=== PATIENT | female | born 1995 | race Caucasian/White ===

== ENCOUNTER 2017-12-05 15:15 | Emergency (ER) | payer SELFPAY ==
[~2017-12-05 15:15] MED LIST: ACET-1966 PO; AMOX875T60 PO; EPIN0.3P15 IM; FAMO20TA28 PO; HYDR-4225 PO; HYDR-4309 PO; PRED-1 PO; PRED20TA6 PO; PROM-110 PO
[2017-12-05] MEDS ORDERED: diphenhydrAMINE 25 MG CAP PO ONE (15:25)
--- NOTE | 2017-12-05 15:29 | ER Report ---
History and Physical Time Seen By MD: 15:19 Hx. 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 SHE HAS A SMALL RED RAISED AREA ON THE BACK OF HER LEFT ARM HPI/ROS CHIEF COMPLAINT: Bee sting HISTORY OF PRESENT ILLNESS: Since the ED with complaint of a bee sting that occurred about 20 minutes ago. She was stung in the left upper arm. She states that she is having some mild pain and itching. Her mother advised her to come in to the ER immediately for this. She states that she has had no anaphylactic reactions to bee stings in the past. She states that she is breathing well and has no tongue or lip swelling. REVIEW OF SYSTEMS: Respiratory: No cough, no dyspnea. Cardiovascular: No chest pain, no palpitations. Gastrointestinal: No vomiting, no abdominal pain. Musculoskeletal: No back pain. Allergies: Coded Allergies: No Known Drug Allergies (Verified , 03/22/15) Home Meds Discontinued Scripts Epinephrine (EPIPEN 2-JACLYN) 0.3 Mg/0.3 Ml Pen.injctr, 0.3 MG IM PRN for severe allergic reaction, #1 Prov:SHOAIB MARISCAL MD 03/22/15 Prednisone 10 Mg Tab (PREDNISONE 10 MG TAB) 10 Mg Tablet, 10 MG PO DIRECTED, #30 TAB 6 tabs daily for 2 days 4 tabs daily for 2 days 2 tabs daily for 2 days 1 tab daily for 10 days Prov:SHOAIB MARISCAL MD 03/22/15 Hydroxyzine Hcl (HYDROXYZINE HCL) 25 Mg Tablet, 25 MG PO 3-4XD for allergic reaction, #60 TAB Prov:SHOAIB MARISCAL MD 03/22/15 Reviewed Nurses Notes: Yes Old Medical Records Reviewed: Yes Hx Smoking: Yes Smoking Status: Current: Every Day Smoker Exposure to Second Hand Smoke?: Yes Hx Substance Use Disorder: No Hx Alcohol Use: No Constitutional Vital Sign - Last 24 Hours 12/05/17 15:16 Temp 97.5 Pulse 90 Resp 20 B/P (MAP) 111/60 Pulse Ox 96 O2 Delivery Room Air Physical Exam General Appearance: The patient is alert, has no immediate need for airway protection and no signs of toxicity. Patient appears to be in no acute distress. ENT, Mouth: Mucous membranes are moist. Respiratory: There are no retractions, lungs are clear to auscultation. Cardiovascular: Regular rate and rhythm. Skin: There is slight swelling and erythema surrounding a small puncture area over the left posterior upper arm. Musculoskeletal: Neck is supple non tender. Extremities are nontender, nonswollen and have full range of motion. Medical Decision Making ED Course/Re-evaluation ED Course Discussed with patient that it appears that she has a localized allergic reaction to bee sting. She may take Benadryl or other antihistamines for this. Will give her 50 mg by mouth Benadryl now. Decision to Disposition Date: Dec 05, 2017 Decision to Disposition Time: 15:27 Depart Departure Latest Vital Signs Vital Signs Date Time Temp Pulse Resp B/P (MAP) Pulse Ox O2 Delivery O2 Flow Rate FiO2 12/05/17 15:16 97.5 90 20 111/60 96 Room Air Impression: Primary Impression: Allergic reaction to bee sting Condition: Improved Disposition: HOME OR SELF-CARE Patient Instructions: Insect Bite or Sting (ED) Additional Instructions: Rest, ice, elevate. May take [id number] antihistamines as needed. Follow- up with primary care provider in 2-3 days. If having any worsening or concerning symptoms return the emergency Department. CONCEPCION PASCAL PA-C Dec 05, 2017 15:29
[2017-12-05 15:32] VITALS: BP 109/70
== END 2017-12-05 15:32 | disposition home or self-care (01) ==
LOC: ER 15:25
DX: T63.441A Toxic effect of venom of bees, accidental (unintentional), initial encounter (principal)
CPT/HCPCS: 99283; Q0163

== ENCOUNTER 2018-01-29 17:25 | Emergency (ER) | payer SELFPAY ==
--- NOTE | 2018-01-29 17:37 | ER Report ---
History and Physical Time Seen By MD: 17:37 Hx. of Stated Complaint: INTERMITTENT VAGINAL BLEEDING SINCE SEPT AND BILATERAL LOWER ABD PAIN, BLEEDING FOLLOWING INTERCOURSE, NO DYSPAREUNIA. HPI/ROS CHIEF COMPLAINT: Lower abdominal pain, vaginal bleeding HISTORY OF PRESENT ILLNESS: 22-year-old female patient presents to emergency room with complaint of lower abdominal pain, vaginal bleeding. Patient states she had her menses at the end of last month. She states that she then had bleeding which was out of the ordinary starting on the third through the fifth. She states that she had intercourse yesterday with her boyfriend. She states there is no pain with intercourse. She states that afterwards she did have significant amounts of nausea. She also stated that she had increasing pain. She states pain is worse with laying down in certain positions while sitting down. She is also noted some intermittent bleeding throughout today. She states that the bleeding started after intercourse. She denies having any fevers, however she has had some chills. She has not taken any medication for this. REVIEW OF SYSTEMS: Respiratory: No cough, no dyspnea. Cardiovascular: No chest pain, no palpitations. Gastrointestinal: As noted above. Musculoskeletal: No back pain. Allergies: Coded Allergies: peanut (Verified Allergy, Severe, ANAPHYLAXIS, 01/29/18) Home Meds Active Scripts Doxycycline Hyclate (DOXYCYCLINE HYCLATE) 100 Mg Tablet, 100 MG PO BID, #28 TAB Prov:LORELEI MONTEJO [facility] 01/29/18 Metronidazole (FLAGYL) 500 Mg Tablet, 500 MG PO BID, #28 TAB Prov:LORELEI MONTEJO [facility] 01/29/18 Past Medical/Surgical History Patient has a past medical history of miscarriage, depression, anxiety. Patient has a surgical history of wisdom teeth removal. Reviewed Nurses Notes: Yes Hx Smoking: Yes Smoking Status: Current: Every Day Smoker Exposure to Second Hand Smoke?: Yes Hx Substance Use Disorder: No Hx Alcohol Use: No Constitutional Vital Sign - Last 24 Hours 01/29/18 01/29/18 01/29/18 01/29/18 17:31 17:33 17:40 18:08 Temp 98.9 Pulse 95 87 Resp 16 B/P (MAP) 139/95 (110) 139/95 128/86 (100) Pulse Ox 95 95 O2 Delivery Room Air 01/29/18 01/29/18 01/29/18 18:10 18:30 18:45 Pulse 76 76 69 83 83 B/P (MAP) 120/86 (97) 114/97 (103) 122/87 (99) Pulse Ox 97 96 Physical Exam General Appearance: The patient is alert, has no immediate need for airway protection and no current signs of toxicity. Respiratory: Chest is non tender, lungs are clear to auscultation. Cardiac: regular rate and rhythm Gastrointestinal: Abdomen is soft and tender throughout the abdomen, however seems to be worse in the suprapubic region, no masses, bowel sounds normal. Musculoskeletal: Neck: Neck is supple and non tender. Extremities have full range of motion and are non tender. Skin: No rashes or lesions. DIFFERENTIAL DIAGNOSIS: After history and physical exam differential diagnosis was considered for abdominal pain including but not limited to appendicitis, cholecystitis, gastritis and urinary tract infection. Medical Decision Making Data Points Result Diagram: 01/29/18 17501/29/18 175 Laboratory Hematology Test 01/29/18 17:30 01/29/18 17:50 Urine Color Yellow Urine Clarity Clear Urine pH 6.0 pH (4.8-9.5) Urine Specific [place] 1.013 Urine Protein Negative mg/dL (NEGATIVE) Urine Glucose (UA) Negative mg/dL (NEGATIVE) Urine Ketones Negative mg/dL (NEGATIVE) Urine Blood Negative (NEGATIVE) Urine Nitrite Negative (NEGATIVE) Urine Bilirubin Negative (NEGATIVE) Urine Urobilinogen Negative mg/dL (0.2-1.9) Urine Leukocyte Esterase Negative (NEGATIVE) Urine RBC 1 /HPF (0-2/HPF) Urine WBC 1 /HPF (0-5/HPF) Urine Squamous Epithelial Cells Many /LPF (</=FEW) Urine Bacteria Negative /HPF (NONE-FEW) Urine Mucus None /HPF (NONE-FEW) Red Blood Count 5.20 M/uL (4.17-5.56) Mean Corpuscular Volume 87.6 fL (80.0-96.0) Mean Corpuscular Hemoglobin 30.1 pg (26.0-33.0) Mean Corpuscular Hemoglobin Concent 34.3 g/dL (32.0-36.0) Red Cell Distribution Width 13.4 % (11.5-14.5) Mean Platelet Volume 7.6 fL (7.2-11.1) Neutrophils (%) (Auto) 57.2 % (39.4-72.5) Lymphocytes (%) (Auto) 33.3 % (17.6-49.6) Monocytes (%) (Auto) 7.7 % (4.1-12.4) Eosinophils (%) (Auto) 1.1 % (0.4-6.7) Basophils (%) (Auto) 0.7 % (0.3-1.4) Nucleated RBC Relative Count (auto) 0.1 /100WBC Neutrophils # (Auto) 6.4 K/uL (2.0-7.4) Lymphocytes # (Auto) 3.7 K/uL (1.3-3.6) Monocytes # (Auto) 0.9 K/uL (0.3-1.0) Eosinophils # (Auto) 0.1 K/uL (0.0-0.5) Basophils # (Auto) 0.1 K/uL (0.0-0.1) Nucleated RBC Absolute Count (auto) 0.01 K/uL Prothrombin Time 12.6 seconds (12.0-14.4) Prothromb Time International Ratio 0.95 Activated Partial Thromboplast Time 29 seconds (23-35) Sodium Level 141 mmol/L (137-145) Potassium Level 3.7 mmol/L (3.5-5.0) Chloride Level 106 mmol/L (98-107) Carbon Dioxide Level 24 mmol/L (22-31) Blood Urea Nitrogen 9 mg/dl (7-18) Creatinine 0.60 mg/dl (0.52-1.04) Glomerular Filtration Rate Calc > 60.0 Random Glucose 94 mg/dl (75-110) Calcium Level 8.7 mg/dl (8.4-10.2) Total Bilirubin 0.4 mg/dl (0.2-1.3) Aspartate Amino Transf (AST/SGOT) 27 U/L (0-35) Alanine Aminotransferase (ALT/SGPT) 43 U/L (0-56) Alkaline Phosphatase 75 U/L (0-126) Total Protein 7.1 g/dl (6.3-8.2) Albumin 3.9 g/dl (3.5-5.0) Human Chorionic Gonadotropin, Qual Negative (NEGATIVE) Chemistry Test 01/29/18 17:30 01/29/18 17:50 Urine Color Yellow Urine Clarity Clear Urine pH 6.0 pH (4.8-9.5) Urine Specific [place] 1.013 Urine Protein Negative mg/dL (NEGATIVE) Urine Glucose (UA) Negative mg/dL (NEGATIVE) Urine Ketones Negative mg/dL (NEGATIVE) Urine Blood Negative (NEGATIVE) Urine Nitrite Negative (NEGATIVE) Urine Bilirubin Negative (NEGATIVE) Urine Urobilinogen Negative mg/dL (0.2-1.9) Urine Leukocyte Esterase Negative (NEGATIVE) Urine RBC 1 /HPF (0-2/HPF) Urine WBC 1 /HPF (0-5/HPF) Urine Squamous Epithelial Cells Many /LPF (</=FEW) Urine Bacteria Negative /HPF (NONE-FEW) Urine Mucus None /HPF (NONE-FEW) White Blood Count 11.1 k/uL (4.5-11.0) Red Blood Count 5.20 M/uL (4.17-5.56) Hemoglobin 15.7 g/dL (12.0-16.0) Hematocrit 45.6 % (34.0-47.0) Mean Corpuscular Volume 87.6 fL (80.0-96.0) Mean Corpuscular Hemoglobin 30.1 pg (26.0-33.0) Mean Corpuscular Hemoglobin Concent 34.3 g/dL (32.0-36.0) Red Cell Distribution Width 13.4 % (11.5-14.5) Platelet Count 332 K/uL (150-450) Mean Platelet Volume 7.6 fL (7.2-11.1) Neutrophils (%) (Auto) 57.2 % (39.4-72.5) Lymphocytes (%) (Auto) 33.3 % (17.6-49.6) Monocytes (%) (Auto) 7.7 % (4.1-12.4) Eosinophils (%) (Auto) 1.1 % (0.4-6.7) Basophils (%) (Auto) 0.7 % (0.3-1.4) Nucleated RBC Relative Count (auto) 0.1 /100WBC Neutrophils # (Auto) 6.4 K/uL (2.0-7.4) Lymphocytes # (Auto) 3.7 K/uL (1.3-3.6) Monocytes # (Auto) 0.9 K/uL (0.3-1.0) Eosinophils # (Auto) 0.1 K/uL (0.0-0.5) Basophils # (Auto) 0.1 K/uL (0.0-0.1) Nucleated RBC Absolute Count (auto) 0.01 K/uL Prothrombin Time 12.6 seconds (12.0-14.4) Prothromb Time International Ratio 0.95 Activated Partial Thromboplast Time 29 seconds (23-35) Glomerular Filtration Rate Calc > 60.0 Calcium Level 8.7 mg/dl (8.4-10.2) Total Bilirubin 0.4 mg/dl (0.2-1.3) Aspartate Amino Transf (AST/SGOT) 27 U/L (0-35) Alanine Aminotransferase (ALT/SGPT) 43 U/L (0-56) Alkaline Phosphatase 75 U/L (0-126) Total Protein 7.1 g/dl (6.3-8.2) Albumin 3.9 g/dl (3.5-5.0) Human Chorionic Gonadotropin, Qual Negative (NEGATIVE) Coagulation Test 01/29/18 17:50 Prothrombin Time 12.6 seconds Prothromb Time International Ratio 0.95 Activated Partial Thromboplast Time 29 seconds Urinalysis Test 01/29/18 17:30 Urine Color Yellow Urine Clarity Clear Urine pH 6.0 pH (4.8-9.5) Urine Specific [place] 1.013 Urine Protein Negative mg/dL (NEGATIVE) Urine Glucose (UA) Negative mg/dL (NEGATIVE) Urine Ketones Negative mg/dL (NEGATIVE) Urine Blood Negative (NEGATIVE) Urine Nitrite Negative (NEGATIVE) Urine Bilirubin Negative (NEGATIVE) Urine Urobilinogen Negative mg/dL (0.2-1.9) Urine Leukocyte Esterase Negative (NEGATIVE) Urine RBC 1 /HPF (0-2/HPF) Urine WBC 1 /HPF (0-5/HPF) Urine Squamous Epithelial Cells Many /LPF (</=FEW) Urine Bacteria Negative /HPF (NONE-FEW) Urine Mucus None /HPF (NONE-FEW) Microbiology Microbiology Date/Time Source Procedure Growth Status 01/29/18 18:10 Cervical Wet Prep - Final Complete ED Course/Re-evaluation ED Course Patient was admitted to an exam room, history and physical were obtained. Differential diagnoses were considered. On examination lungs are clear, heart is regular, abdomen is soft and tender in the suprapubic region. A CBC, CMP, hCG, urinalysis were obtained. Lab results were negative. I considered doing a CT scan but with white count being 11,100 with no left shift I felt that would be too much radiation without any real benefit. A pelvic exam was done as described below. Patient did have some cervical motion tenderness. A chlamydia and gonorrhea screen was obtained as well as a wet prep. Wet prep was positive for Trichomonas, clue cells, many white blood cells and some epithelial cells. Discussed findings with patient. We will go ahead and treat her with Dr. Saxena and Laly for PID which will cover both the bacterial vaginosis as well as trichomonas. We'll also give the patient a prescription for her boyfriend, 2 g of Flagyl 1. I would like the patient follow-up with her face cleaner. Patient is to avoid sexual intercourse for 2 weeks. I discussed this with the patient who verbalized understanding and agreement with plan. Pelvic exam: The vulva was normal no lesions. The vagina did not have significant discharge. The cervix was closed no bleeding and no purulent drainage. The uterus was normal size and tender. The adnexa had no masses and no tenderness. The exam was performed with a metal off bearer. Decision to Disposition Date: Jan 29, 2018 Decision to Disposition Time: 18:56 Depart Departure Latest Vital Signs Vital Signs Date Time Temp Pulse Resp B/P (MAP) Pulse Ox O2 Delivery O2 Flow Rate FiO2 01/29/18 18:45 69 96 01/29/18 18:30 120/86 (97) 114/97 (103) 122/87 (99) 01/29/18 17:33 98.9 16 Room Air Impression: Primary Impression: Pelvic inflammatory disease Additional Impressions: infection, trichomonal Bacterial vaginosis Condition: Improved Disposition: HOME OR SELF-CARE New Scripts Doxycycline Hyclate (DOXYCYCLINE HYCLATE) 100 Mg Tablet 100 MG PO BID, #28 TAB Prov: LORELEI MONTEJO 01/29/18 Metronidazole (FLAGYL) 500 Mg Tablet 500 MG PO BID, #28 TAB Prov: LORELEI MONTEJO 01/29/18 Patient Instructions: Pelvic Inflammatory Disease (ED) Additional Instructions: Increase fluid intake. Get plenty of rest. No sexual intercourse for the next 2 weeks. Take your antibiotics as directed. Follow up with your face cleaner in the next week. Return to the ER if condition worsens. Problem Qualifiers LORELEI MONTEJO Jan 29, 2018 17:37
[2018-01-29] MEDS ORDERED: NS(*) 0.9% 1000 ML BAG 1,000 ML IV ONE (17:46)
[2018-01-29 17:56] LABS: PLATELET COUNT, AUTOMATED 332 K/uL (150-450)
[2018-01-29 18:09] LABS: INR 0.95
[2018-01-29 18:30] VITALS: BP 122/87
[2018-01-29] MEDS ORDERED: METR-1 PO (18:52)
[2018-01-29] MEDS ORDERED: DOXY-179 PO (18:52)
== END 2018-01-29 19:10 | disposition home or self-care (01) ==
LOC: ER 17:33
DX: R11.0 Nausea (principal); N73.9 Female pelvic inflammatory disease, unspecified; N76.0 Acute vaginitis; A59.01 Trichomonal vulvovaginitis
CPT/HCPCS: 81001; 84703; 85025; 85610; 85730; 87210; 87491; 87591; 96360; 99283; J7030; 82040; 82247; 82310; 82374; 82435; 82565; 82947; 84075; 84132; 84155; 84295; 84450; 84460; 84520

== ENCOUNTER 2018-03-13 16:23 | Emergency (ER) | payer SELFPAY ==
[~2018-03-13 16:23] MED LIST changes: +DOXY-179 PO; -HYDR-4309 PO; +HYDR-653 PO; +METR-1 PO
--- NOTE | 2018-03-13 16:30 | ER Report ---
History and Physical Time Seen By MD: 16:31 HPI/ROS CHIEF COMPLAINT: Labial pain and swelling HISTORY OF PRESENT ILLNESS: This is a 22-year-old female who presents to the emergency department for concerns of an abscess or cyst in her genital area. Patient states she developed some pain and irritation in the left labial area la st night, increased in intensity and pain throughout today, patient states it's very uncomfortable now and makes ambulating and positional changes difficult and uncomfortable. No fevers or chills. No nausea vomiting. No other complaints. REVIEW OF SYSTEMS: Respiratory: No cough, no dyspnea. Cardiovascular: No chest pain, no palpitations. Gastrointestinal: No vomiting, no abdominal pain. Musculoskeletal: No back pain. Integumentary: As above. Allergies: Coded Allergies: peanut (Verified Allergy, Severe, ANAPHYLAXIS, 01/29/18) Home Meds Active Scripts Hydrocodone Bit/Acetaminophen (NORCO 5-325 TABLET) 1 Each Tablet, 1 EACH PO Q4- 6H PRN for PAIN, #6 TAB 0 Refills Prov:ZAN AMAYA [facility]- 03/13/18 Cephalexin 500 Mg Tab (KEFLEX 500 MG TAB) 500 Mg Tablet, 500 MG PO Q6H, #28 TAB 0 Refills Prov:ZAN AMAYA [facility]- 03/13/18 Discontinued Scripts Doxycycline Hyclate (DOXYCYCLINE HYCLATE) 100 Mg Tablet, 100 MG PO BID, #28 TAB Prov:LORELEI MONTEJO [facility] 01/29/18 Metronidazole (FLAGYL) 500 Mg Tablet, 500 MG PO BID, #28 TAB Prov:LORELEI MONTEJO [facility] 01/29/18 Past Medical/Surgical History The patient has a: Howie history of wisdom tooth extraction, miscarriage, smokes, depression, anxiety. Reviewed Nurses Notes: Yes Hx Smoking: Yes Smoking Status: Current: Every Day Smoker Exposure to Second Hand Smoke?: Yes Hx Substance Use Disorder: No Hx Alcohol Use: No Constitutional Vital Sign - Last 24 Hours 03/13/18 16:31 Temp 98.1 Pulse 101 Resp 16 B/P (MAP) 126/91 Pulse Ox 95 O2 Delivery Room Air Physical Exam General Appearance: The patient is alert, has no immediate need for airway protection and no current signs of toxicity. Eyes: Pupils equal and round no injection. Respiratory: Chest is non tender, lungs are clear to auscultation. Cardiac: regular rate and rhythm. Gastrointestinal: Abdomen is soft and non tender, no masses, bowel sounds normal. Musculoskeletal: Neck: Neck is supple and non tender. Extremities have full range of motion and are non tender. Skin: there is an area of erythema and cellulitis to the left labia majora. No sign of Bartholin's abscess. The area is warm to touch and painful with light palpation. DIFFERENTIAL DIAGNOSIS: After history and physical exam differential diagnosis was considered for Bartholin's abscess, cellulitis, folliculitis. Medical Decision Making ED Course/Re-evaluation ED Course The patient was admitted to a room. A history and physical were obtained. Differential diagnoses were considered. With a winding operator, a close inspection of the labia did not reveal a bartholin's abscess, it is cellulitic. As the patient to groom her genitalia with a razor, it is possible this is from razor burn or f olliculitis. The area was covered with topical lidocaine with significant relief of pain. I did start her on Keflex. She was instructed to monitor of worsening symptoms. She will also apply a thin layer of lidocaine to the area for pain control, Lortab was prescribed for severe pain. The patient had no other questions or concerns and was discharged home. Decision to Disposition Date: Mar 13, 2018 Decision to Disposition Time: 17:10 Depart Departure Latest Vital Signs Vital Signs Date Time Temp Pulse Resp B/P (MAP) Pulse Ox O2 Delivery O2 Flow Rate FiO2 03/13/18 16:31 98.1 101 16 126/91 95 Room Air Impression: Primary Impression: Cellulitis of labia majora Condition: Improved Disposition: HOME OR SELF-CARE New Scripts Hydrocodone Bit/Acetaminophen (NORCO 5-325 TABLET) 1 Each Tablet 1 EACH PO Q4-6H PRN for PAIN, #6 TAB 0 Refills Prov: ZAN AMAYA [facility] 03/13/18 Cephalexin 500 Mg Tab (KEFLEX 500 MG TAB) 500 Mg Tablet 500 MG PO Q6H, #28 TAB 0 Refills Prov: ZAN AMAYA [employer] 03/13/18 Patient Instructions: Cellulitis (ED) Additional Instructions: There is no sign of an abscess at this time, You do however had skin infection called cellulitis. As we discussed, take the antibiotics as prescribed. Take Ibuprofen or Tylenol as needed for pain. Take Hydrocodone for severe pain, it is sedating, can cause constipation, increase your water and daily fiber. Use the lidocaine, topically and only externally to the painful areas. Try a sitz bath, 2-3 times a day for the next several days. Be sure to keep the affected area clean and dry. Return to the ED for any other concerns or worsening symptoms. ZAN AMAYA [employer] Mar 13, 2018 16:30
[2018-03-13 16:31] VITALS: BP 126/91
[2018-03-13] MEDS ORDERED: LIDOCAINE 2% VISC SLN 15ML UDC PO ONE (16:50)
[2018-03-13] MEDS ORDERED: CEPH500T7 PO (17:11)
[2018-03-13] MEDS ORDERED: HYDR-653 PO (17:11)
[2018-03-14] MEDS ORDERED: CLIN300C99 PO (15:11)
[2018-03-14] MEDS ORDERED: SULF-198 PO (15:11)
[2018-03-14] MEDS ORDERED: OXYC-865 PO (15:20)
== END 2018-03-13 17:25 | disposition home or self-care (01) ==
LOC: ER 16:35
DX: N76.2 Acute vulvitis (principal)
CPT/HCPCS: 99283

== ENCOUNTER 2018-03-14 11:25 | Emergency (ER) | payer SELFPAY ==
[~2018-03-14 11:25] MED LIST changes: +CEPH500T7 PO
--- NOTE | 2018-03-14 11:35 | ER Report ---
History and Physical Time Seen By MD: 11:35 HPI/ROS CHIEF COMPLAINT: Labial swelling and pain HISTORY OF PRESENT ILLNESS: 22-year-old female patient presents to emergency room with complaint of labial swelling and pain. She states that she was seen here yesterday, was diagnosed with cellulitis. Patient states the pain is significantly worse today than it had been. Patient states she was started on Keflex and has pain medication. Since the patient has seemed to help. She states she's been nauseated today, she denies any vomiting or diarrhea. She states that she came back because the pain was so significant. REVIEW OF SYSTEMS: Respiratory: No cough, no dyspnea. Cardiovascular: No chest pain, no palpitations. Gastrointestinal: No vomiting, no abdominal pain. Musculoskeletal: No back pain. Allergies: Coded Allergies: peanut (Verified Allergy, Severe, ANAPHYLAXIS, 01/29/18) Home Meds Active Scripts Clindamycin Hcl (CLINDAMYCIN HCL) 300 Mg Capsule, 300 MG PO Q6H, #50 CAPSULE Prov:LORELEI MONTEJO [facility] 03/14/18 Sulfamethoxazole/Trimet 800-160 Mg Tab (BACTRIM DS TABLET) 1 Each Tablet, 1 TAB PO Q12H, #26 TAB Prov:LORELEI MONTEJO [facility] 03/14/18 Hydrocodone Bit/Acetaminophen (NORCO 5-325 TABLET) 1 Each Tablet, 1 EACH PO Q4- 6H PRN for PAIN, #6 TAB 0 Refills Prov:ZAN AMAYA [facility] 03/13/18 Cephalexin 500 Mg Tab (KEFLEX 500 MG TAB) 500 Mg Tablet, 500 MG PO Q6H, #28 TAB 0 Refills Prov:ZAN AMAYA [facility] 03/13/18 Discontinued Scripts Doxycycline Hyclate (DOXYCYCLINE HYCLATE) 100 Mg Tablet, 100 MG PO BID, #28 TAB Prov:LORELEI MONTEJO [facility] 01/29/18 Metronidazole (FLAGYL) 500 Mg Tablet, 500 MG PO BID, #28 TAB Prov:LORELEI MONTEJO [facility] 01/29/18 Past Medical/Surgical History Patient has a past medical history of depression, anxiety, miscarriage. Patient has a surgical history wisdom teeth removal. Reviewed Nurses Notes: Yes Hx Smoking: Yes Smoking Status: Current: Every Day Smoker Exposure to Second Hand Smoke?: Yes Hx Substance Use Disorder: No Hx Alcohol Use: No Constitutional Vital Sign - Last 24 Hours 03/14/18 03/14/18 03/14/18 03/14/18 11:30 11:33 11:35 11:45 Temp 98.0 Pulse ??? 112 Resp 18 B/P (MAP) 130/89 130/89 (103) 114/80 (91) Pulse Ox 92 03/14/18 03/14/18 03/14/18 03/14/18 12:00 12:15 12:30 12:45 Pulse 96 95 B/P (MAP) 130/101 (111) 126/83 (97) 145/69 (94) Pulse Ox 90 91 03/14/18 03/14/18 03/14/18 03/14/18 13:00 13:30 14:00 14:30 Pulse 90 90 94 84 B/P (MAP) 104/64 (77) Pulse Ox 96 94 95 95 Physical Exam General Appearance: The patient is alert, has no immediate need for airway protection and no current signs of toxicity. Respiratory: Chest is non tender, lungs are clear to auscultation. Cardiac: regular rate and rhythm Gastrointestinal: Abdomen is soft and non tender, no masses, bowel sounds normal. Musculoskeletal: Neck: Neck is supple and non tender. Extremities have full range of motion and are non tender. Skin: No rashes or lesions. Patient does have swelling, erythema noted to the left labia. It is very tender to palpation. Examination of the labia was done with a traffic circuit engineer. DIFFERENTIAL DIAGNOSIS: After history and physical exam differential diagnosis was considered for dental abscess, cellulitis. Medical Decision Making Data Points Result Diagram: 03/14/18 1153 03/14/18 1153 Laboratory Hematology Test 03/14/18 11:53 Red Blood Count 4.97 M/uL (4.17-5.56) Mean Corpuscular Volume 89.0 fL (80.0-96.0) Mean Corpuscular Hemoglobin 30.4 pg (26.0-33.0) Mean Corpuscular Hemoglobin Concent 34.2 g/dL (32.0-36.0) Red Cell Distribution Width 13.0 % (11.5-14.5) Mean Platelet Volume 7.2 fL (7.2-11.1) Neutrophils (%) (Auto) 72.9 % (39.4-72.5) Lymphocytes (%) (Auto) 17.4 % (17.6-49.6) Monocytes (%) (Auto) 8.7 % (4.1-12.4) Eosinophils (%) (Auto) 0.6 % (0.4-6.7) Basophils (%) (Auto) 0.4 % (0.3-1.4) Nucleated RBC Relative Count (auto) 0.1 /100WBC Neutrophils # (Auto) 12.8 K/uL (2.0-7.4) Lymphocytes # (Auto) 3.1 K/uL (1.3-3.6) Monocytes # (Auto) 1.5 K/uL (0.3-1.0) Eosinophils # (Auto) 0.1 K/uL (0.0-0.5) Basophils # (Auto) 0.1 K/uL (0.0-0.1) Nucleated RBC Absolute Count (auto) 0.02 K/uL Peripheral Blood Smear No Y/N Sodium Level 137 mmol/L (137-145) Potassium Level 3.6 mmol/L (3.5-5.0) Chloride Level 106 mmol/L (98-107) Carbon Dioxide Level 21 mmol/L (22-31) Blood Urea Nitrogen 8 mg/dl (7-18) Creatinine 0.60 mg/dl (0.52-1.04) Glomerular Filtration Rate Calc > 60.0 Random Glucose 103 mg/dl (75-110) Calcium Level 9.0 mg/dl (8.4-10.2) Total Bilirubin 0.6 mg/dl (0.2-1.3) Aspartate Amino Transf (AST/SGOT) 44 U/L (0-35) Alanine Aminotransferase (ALT/SGPT) 73 U/L (0-56) Alkaline Phosphatase 87 U/L (0-126) Total Protein 7.6 g/dl (6.3-8.2) Albumin 4.0 g/dl (3.5-5.0) Human Chorionic Gonadotropin, Qual Negative (NEGATIVE) Chemistry Test 03/14/18 11:53 White Blood Count 17.6 k/uL (4.5-11.0) Red Blood Count 4.97 M/uL (4.17-5.56) Hemoglobin 15.1 g/dL (12.0-16.0) Hematocrit 44.2 % (34.0-47.0) Mean Corpuscular Volume 89.0 fL (80.0-96.0) Mean Corpuscular Hemoglobin 30.4 pg (26.0-33.0) Mean Corpuscular Hemoglobin Concent 34.2 g/dL (32.0-36.0) Red Cell Distribution Width 13.0 % (11.5-14.5) Platelet Count 335 K/uL (150-450) Mean Platelet Volume 7.2 fL (7.2-11.1) Neutrophils (%) (Auto) 72.9 % (39.4-72.5) Lymphocytes (%) (Auto) 17.4 % (17.6-49.6) Monocytes (%) (Auto) 8.7 % (4.1-12.4) Eosinophils (%) (Auto) 0.6 % (0.4-6.7) Basophils (%) (Auto) 0.4 % (0.3-1.4) Nucleated RBC Relative Count (auto) 0.1 /100WBC Neutrophils # (Auto) 12.8 K/uL (2.0-7.4) Lymphocytes # (Auto) 3.1 K/uL (1.3-3.6) Monocytes # (Auto) 1.5 K/uL (0.3-1.0) Eosinophils # (Auto) 0.1 K/uL (0.0-0.5) Basophils # (Auto) 0.1 K/uL (0.0-0.1) Nucleated RBC Absolute Count (auto) 0.02 K/uL Peripheral Blood Smear No Y/N Glomerular Filtration Rate Calc > 60.0 Calcium Level 9.0 mg/dl (8.4-10.2) Total Bilirubin 0.6 mg/dl (0.2-1.3) Aspartate Amino Transf (AST/SGOT) 44 U/L (0-35) Alanine Aminotransferase (ALT/SGPT) 73 U/L (0-56) Alkaline Phosphatase 87 U/L (0-126) Total Protein 7.6 g/dl (6.3-8.2) Albumin 4.0 g/dl (3.5-5.0) Human Chorionic Gonadotropin, Qual Negative (NEGATIVE) EKG/Imaging Imaging EXAMINATION: CT Pelvis W/Contrast HISTORY: Labial swelling, redness TECHNIQUE: Spiral scan was obtained through the pelvis during injection of nonionic iodinated intravenous contrast. One of the following dose optimization techniques was utilized in the performance of this exam: Automated exposure control; adjustment of the mA and/or kV according to the patient's size; or use of an iterative reconstruction technique. Specific details can be referenced in the facility's radiology CT exam operational policy. Contrast: 75 mL of IV Isovue-370. COMPARISON STUDIES: None. FINDINGS: Pelvic structures: Bladder is unremarkable. Uterus and adnexal structures are normal. There is a rim-enhancing fluid collection along the left posterolateral aspect of the vaginal introitus measuring approximately 3.9 x 1.9 x 2 cm. With a classic location for a Bartholin's cyst. While these can have some rim enhancement, these can become secondarily infected and form an abscess. There are some mild adjacent inflammatory changes which would be concerning for infection. Bowel / peritoneum / mesenteries: Visualized bowel is unremarkable. Appendix is identified and is normal. There is no free fluid or free air in the pelvis. Vessels: Negative Musculoskeletal / Body wall: Negative Lymph node assessment: There are enlarged left inguinal nodes, the largest measuring approximately 2 cm in short axis. There are adjacent inflammatory changes. No significant right inguinal adenopathy. IMPRESSION: 1. Findings consistent with a left Bartholin's cyst. Adjacent inflammatory changes and rim enhancement are consistent with secondary infection. This would correlate with the patient's symptoms. 2. Enlarged left inguinal nodes, most likely reactive. Close clinical follow-up and/or imaging follow-up if necessary is recommended. Report Dictated By: Latosha Emerson MD at 03/14/2018 12:49 PM Report E-Signed By: Latosha Emerson MD at 03/14/2018 1:07 PM ED Course/Re-evaluation ED Course Patient is admitted and examined, history and physical were obtained. On examination lungs are clear, heart is regular, abdomen soft nontender. Patient does have significant amounts of tenderness to the left labia. It is swollen and erythematous. With the patient being seen so recently I did do a CT scan of the pelvis, partially due to the pain and also because I do not think she'll be able to tolerate an ultrasound. Results showed a Bartholin's cyst. I discussed the case with Dr. Preciado, on cytotechnologist/histotechnologist. He did come and evaluate the patient and opened and drained the abscess. Patient will then be placed on antibiotics, Bactrim and clindamycin. She is follow-up with Dr. Preciado in his office in 3 weeks. Patient will be on antibiotics for the next 2 weeks. I discussed this with the patient and her mother they verbalized understanding and agreement. Due to the amount of pain we will go ahead and change her pain medication to oxycodone/acetaminophen. Decision to Disposition Date: Mar 14, 2018 Decision to Disposition Time: 15:13 Depart Departure Latest Vital Signs Vital Signs Date Time Temp Pulse Resp B/P (MAP) Pulse Ox O2 Delivery O2 Flow Rate FiO2 03/14/18 14:30 84 95 03/14/18 13:00 104/64 (77) 03/14/18 11:33 98.0 18 Impression: Primary Impression: Bartholin's gland abscess Condition: Improved Disposition: HOME OR SELF-CARE New Scripts Clindamycin Hcl (CLINDAMYCIN HCL) 300 Mg Capsule 300 MG PO Q6H, #50 CAPSULE Prov: LORELEI MONTEJO 03/14/18 Sulfamethoxazole/Trimet 800-160 Mg Tab (BACTRIM DS TABLET) 1 Each Tablet 1 TAB PO Q12H, #26 TAB Prov: LORELEI MONTEJO 03/14/18 Patient Instructions: Bartholin Cyst (ED) Additional Instructions: Limit activity by pain. Follow up with Dr. Preciado in the clinic in 3 weeks. Take the antibiotics as directed. Take the pain medication as prescribed. Return to the ER if condition worsens. You may take Ibuprofen as needed for pain in addition to the pain medicine. LORELEI MONTEJO Mar 14, 2018 11:35
[2018-03-14] MEDS ORDERED: MORPHINE 4 MG/ML SDV IVP ONE ×2 (11:50→13:35)
[2018-03-14] MEDS ORDERED: cefTRIAXone(*) 1 GM VIAL 1 GM in NS(*) 0.9% 100 ML ADDVANT BAG 100 ML IVPB ONE (11:55)
[2018-03-14 12:05] LABS: PLATELET COUNT, AUTOMATED 335 K/uL (150-450)
[2018-03-14] MEDS ORDERED: IOPAMIDOL 76% 75 ML INFUS BTL 75 ML ONE (12:09)
[2018-03-14 13:00] VITALS: BP 104/64
--- NOTE | 2018-03-14 13:11 | RADIOLOGY IMAGING REPORT ---
FACILITY: [facility] PATIENT NAME: Nelly Palacios : 1995 MR: [id number] V: [id number] EXAM DATE: ORDERING PHYSICIAN: LORELEI MONTEJO TECHNOLOGIST: Location: [facility] [place] Patient: Nelly Palacios : 1995 Visit/Account:[id number] Date of Sevice: 03/14/2018 EXAMINATION: CT Pelvis W/Contrast HISTORY: Labial swelling, redness TECHNIQUE: Spiral scan was obtained through the pelvis during injection of nonionic iodinated intrave nous contrast. One of the following dose optimization techniques was utilized in the performance of t his exam: Automated exposure control; adjustment of the mA and/or kV according to the patient's size; or use of an iterative reconstruction technique. Specific details can be referenced [facility] exam operational policy. Contrast: 75 mL of IV Isovue-370. COMPARISON STUDIES: None. FINDINGS: Pelvic structures: Bladder is unremarkable. Uterus and adnexal structures are normal. There is a rim-enhancing fluid collection along the left posterolateral aspect of the vaginal introitus measurin g approximately 3.9 x 1.9 x 2 cm. With a classic location for a Bartholin's cyst. While these can hav e some rim enhancement, these can become secondarily infected and form an abscess. There are some mil d adjacent inflammatory changes which would be concerning for infection. Bowel / peritoneum / mesenteries: Visualized bowel is unremarkable. Appendix is identified and is no rmal. There is no free fluid or free air in the pelvis. Vessels: Negative Musculoskeletal / Body wall: Negative Lymph node assessment: There are enlarged left inguinal nodes, the largest measuring approximately 2 cm in short axis. There are adjacent inflammatory changes. No significant right inguinal adenopathy. IMPRESSION: 1. Findings consistent with a left Bartholin's cyst. Adjacent inflammatory changes and rim enhancemen t are consistent with secondary infection. This would correlate with the patient's symptoms. 2. Enlarged left inguinal nodes, most likely reactive. Close clinical follow-up and/or imaging follow -up if necessary is recommended. Report Dictated By: Latosha Emerson MD at 03/14/2018 12:49 PM Report E-Signed By: Latosha Emerson MD at 03/14/2018 1:07 PM WSN:[id number]
[2018-03-14] MEDS ORDERED: SILVER NITRATE SWABS 10 PKG TP ONE (15:02)
[2018-03-14] MEDS ORDERED: CLIN300C99 PO (15:11)
[2018-03-14] MEDS ORDERED: SULF-198 PO (15:11)
[2018-03-14] MEDS ORDERED: CLINDAMYCIN 150 MG CAP PO ONE (15:15)
[2018-03-14] MEDS ORDERED: TRIMETHOPRIM/SULFA 160-800 TH 2 TAB/BOTTLE PO ONE (15:15)
[2018-03-14] MEDS ORDERED: OXYC-865 PO (15:20)
[2018-03-14] MEDS ORDERED: oxyCODONE/ACETAMIN 5/325MG TH 2 TAB/BOTTLE PO ONE (15:20)
--- NOTE | 2018-03-15 00:10 | OPERATIVE REPORT 1 ---
EVENT DATE: March 14, 2018 SURGEON: Ted Preciado MD ANESTHESIA: Local Xylocaine 1% x3 mL. PREOPERATIVE DIAGNOSIS Bartholin gland abscess. POSTOPERATIVE DIAGNOSIS Bartholin gland abscess. PROCEDURE PERFORMED Incision and drainage of Bartholin gland abscess. INDICATIONS A pleasant 22-year-old white female who presented with a two-day history of Bartholin gland cyst that developed into significant pain and eventually into an abscess. It was assessed yesterday, and she was felt to have cellulitis and was sent home on Keflex from the emergency department. She returned today with worsened symptoms. CT scan showed a 3 cm vulvar abscess in location consistent with a Bartholin gland. On exam, this was confirmed on the left side; significant swelling, approximately 3 cm in size, with some surrounding erythema and tissue tenderness throughout the left labia. It was firm to palpate and consistent with a Bartholin gland cyst/abscess. DESCRIPTION OF PROCEDURE The patient was in the dorsal lithotomy position, and the labia were spread and wiped clean with an alcohol wipe. The surface area overlying the medial left labia majora and minora was infiltrated with 1% lidocaine x3 mL for local anesthesia. Using an 11 blade scalpel, a 1 cm vertical incision was made overlying the abscess. There was a purulent fluid that was expelled, and with further massage, any of the remaining infected fluid was expressed from the wound. After completion, a Word catheter was inserted and filled with approximately 3 mL of normal saline. The area was cleaned up and she was returned to the seated position. She was given discharge instructions to keep the area clean and to keep the Word catheter in place. If it should fall out, she is to contact my office. Otherwise, return to my office in three weeks for removal. Will change her antibiotics here to Bactrim and clindamycin. MARILYN
== END 2018-03-14 15:35 | disposition home or self-care (01) ==
LOC: ER 11:34
DX: N75.1 Abscess of Bartholin's gland (principal)
CPT/HCPCS: 56420; 72193; 84703; 85025; 96365; 96375; 96376; 99285; J0696; J2270; J7050; Q9967; 82040; 82247; 82310; 82374; 82435; 82565; 82947; 84075; 84132; 84155; 84295; 84450; 84460; 84520

== ENCOUNTER 2018-04-28 14:57 | Emergency (ER) | payer SELFPAY ==
[~2018-04-28 14:57] MED LIST changes: +CLIN300C99 PO; +OXYC-865 PO; +SULF-198 PO
--- NOTE | 2018-04-28 15:49 | ER Report ---
History and Physical Time Seen By MD: 15:49 Hx. of Stated Complaint: COUGH X 4 DAYS HPI/ROS CHIEF COMPLAINT: Cough HISTORY OF PRESENT ILLNESS: This is a 22-year-old female who presents to the emergency department for a nonproductive cough. Patient states that she's had a nonproductive cough for roughly 4 days, initially started out as a sore throat then moved to a cough and upper respiratory type infection. No fevers however she's had chills and aches at home. She's had nausea and vomiting. No diarrhea. No chest pain but she is having some mild shortness of breath. No headaches. No rashes. REVIEW OF SYSTEMS: Constitutional: No fever, no chills. Eyes: No discharge. ENT: No sore throat. Cardiovascular: No chest pain, no palpitations. Respiratory: As above. Gastrointestinal: As above. Genitourinary: No hematuria. Musculoskeletal: No back pain. Skin: No rashes. Neurological: No headache. Allergies: Coded Allergies: peanut (Verified Allergy, Severe, ANAPHYLAXIS, 01/29/18) Home Meds Active Scripts Prednisone (PREDNISONE) 20 Mg Tablet, 20 MG PO BID, #10 TAB Prov:ZAN AMAYA [facility]- 04/28/18 Benzonatate (BENZONATATE) 200 Mg Capsule, 200 MG PO TID PRN for COUGH, #15 CAP Prov:ZAN AMAYA [facility]- 04/28/18 Oxycodone Hcl/Acetaminophen (PERCOCET 5-325 MG TABLET) 1 Each Tablet, 1 EACH PO Q4-6H PRN for PAIN, #8 TAB Prov:LORELEI MONTEJO [facility] 03/14/18 Clindamycin Hcl (CLINDAMYCIN HCL) 300 Mg Capsule, 300 MG PO Q6H, #50 CAPSULE Prov:LORELEI MONTEJO [facility] 03/14/18 Sulfamethoxazole/Trimet 800-160 Mg Tab (BACTRIM DS TABLET) 1 Each Tablet, 1 TAB PO Q12H, #26 TAB Prov:LORELEI MONTEJO [facility] 03/14/18 Hydrocodone Bit/Acetaminophen (NORCO 5-325 TABLET) 1 Each Tablet, 1 EACH PO Q4- 6H PRN for PAIN, #6 TAB 0 Refills Prov:ZAN AMAYA [facility]- 03/13/18 Cephalexin 500 Mg Tab (KEFLEX 500 MG TAB) 500 Mg Tablet, 500 MG PO Q6H, #28 TAB 0 Refills Prov:ZAN AMAYA [employer] AUDIT CLERK-BC 03/13/18 Past Medical/Surgical History The patient has a past medical and surgical history of GERD, miscarriage, labial cellulitis, depression, anxiety, which indeed extraction. Reviewed Nurses Notes: Yes Hx Smoking: Yes Smoking Status: Current: Every Day Smoker Exposure to Second Hand Smoke?: Yes Hx Substance Use Disorder: No Hx Alcohol Use: No Constitutional Vital Sign - Last 24 Hours 04/28/18 04/28/18 04/28/18 04/28/18 15:05 15:49 15:57 16:00 Temp 97.4 98.5 Pulse 108 102 96 Resp 20 18 B/P (MAP) 138/104 133/80 116/81 (93) Pulse Ox 92 91 92 O2 Delivery Room Air Room Air 04/28/18 04/28/18 04/28/18 04/28/18 16:10 16:10 16:12 16:27 Pulse 73 81 99 Resp 14 Pulse Ox 98 99 93 O2 Delivery Room Air 04/28/18 04/28/18 04/28/18 04/28/18 16:30 16:42 16:47 17:00 Pulse 100 ??? B/P (MAP) 99/59 (72) 119/78 (92) Pulse Ox 91 04/28/18 04/28/18 04/28/18 04/28/18 17:02 17:17 17:30 17:32 Pulse 87 94 95 Resp 27 15 12 B/P (MAP) 107/64 (78) Pulse Ox 94 89 87 04/28/18 04/28/18 04/28/18 04/28/18 17:47 17:52 17:52 18:00 Pulse 87 71 Resp 20 16 B/P (MAP) 95/65 (75) Pulse Ox 90 91 O2 Delivery Room Air 04/28/18 04/28/18 04/28/18 04/28/18 18:02 18:17 18:30 18:32 Pulse 100 93 98 Resp 9 13 17 B/P (MAP) 113/79 (90) Pulse Ox 89 89 91 04/28/18 04/28/18 18:37 18:52 Pulse 98 90 Resp 8 10 Pulse Ox 85 90 Physical Exam General Appearance: The patient is alert, has no immediate need for airway protection and no signs of toxicity. Eyes: Pupils equal and round no pallor or injection. ENT, Mouth: Mucous membranes are moist. Respiratory: Diminished throughout. Cardiovascular: Regular rate and rhythm. Gastrointestinal: Abdomen is soft and non tender, no masses, bowel sounds normal. Neurological: Alert and oriented 4. Moving all extremities. Following all commands. No focal neuro deficits. Skin: Warm and dry, no rashes. Musculoskeletal: Neck is supple non tender. Extremities are nontender, nonswollen and have full range of motion. DIFFERENTIAL DIAGNOSIS: After history and physical exam differential diagnosis was considered for bronchitis, pneumonia, influenza, viral syndrome and upper respiratory infection. Medical Decision Making Data Points Result Diagram: 04/28/18 1632 04/28/18 1632 Laboratory Hematology Test 04/28/18 15:07 04/28/18 15:53 04/28/18 16:32 Influenza Virus Type A (PCR) Negative (NEGATIVE) Influenza Virus Type B (PCR) Negative (NEGATIVE) Urine Color Yellow Urine Clarity Clear Urine pH 6.0 pH (4.8-9.5) Urine Specific [place] 1.020 Urine Protein Negative mg/dL (NEGATIVE) Urine Glucose (UA) Negative mg/dL (NEGATIVE) Urine Ketones Negative mg/dL (NEGATIVE) Urine Blood Negative (NEGATIVE) Urine Nitrite Negative (NEGATIVE) Urine Bilirubin Negative (NEGATIVE) Urine Urobilinogen Negative mg/dL (0.2-1.9) Urine Leukocyte Esterase Negative (NEGATIVE) Urine RBC None /HPF (0-2/HPF) Urine WBC 1 /HPF (0-5/HPF) Urine Squamous Epithelial Cells Many /LPF (</=FEW) Urine Bacteria Negative /HPF (NONE-FEW) Urine Mucus Few /HPF (NONE-FEW) Red Blood Count 5.02 M/uL (4.17-5.56) Mean Corpuscular Volume 87.4 fL (80.0-96.0) Mean Corpuscular Hemoglobin 30.1 pg (26.0-33.0) Mean Corpuscular Hemoglobin Concent 34.5 g/dL (32.0-36.0) Red Cell Distribution Width 13.5 % (11.5-14.5) Mean Platelet Volume 7.5 fL (7.2-11.1) Neutrophils (%) (Auto) 53.3 % (39.4-72.5) Lymphocytes (%) (Auto) 33.1 % (17.6-49.6) Monocytes (%) (Auto) 10.2 % (4.1-12.4) Eosinophils (%) (Auto) 2.3 % (0.4-6.7) Basophils (%) (Auto) 1.1 % (0.3-1.4) Nucleated RBC Relative Count (auto) 0.0 /100WBC Neutrophils # (Auto) 5.3 K/uL (2.0-7.4) Lymphocytes # (Auto) 3.3 K/uL (1.3-3.6) Monocytes # (Auto) 1.0 K/uL (0.3-1.0) Eosinophils # (Auto) 0.2 K/uL (0.0-0.5) Basophils # (Auto) 0.1 K/uL (0.0-0.1) Nucleated RBC Absolute Count (auto) 0.00 K/uL Sodium Level 138 mmol/L (137-145) Potassium Level 3.6 mmol/L (3.5-5.0) Chloride Level 105 mmol/L (98-107) Carbon Dioxide Level 26 mmol/L (22-31) Blood Urea Nitrogen 8 mg/dl (7-18) Creatinine 0.50 mg/dl (0.52-1.04) Glomerular Filtration Rate Calc > 60.0 Random Glucose 89 mg/dl (75-110) Calcium Level 8.7 mg/dl (8.4-10.2) Total Bilirubin 0.4 mg/dl (0.2-1.3) Aspartate Amino Transf (AST/SGOT) 29 U/L (0-35) Alanine Aminotransferase (ALT/SGPT) 38 U/L (0-56) Alkaline Phosphatase 74 U/L (0-126) Total Protein 7.2 g/dl (6.3-8.2) Albumin 4.0 g/dl (3.5-5.0) Chemistry Test 04/28/18 15:07 04/28/18 15:53 04/28/18 16:32 Influenza Virus Type A (PCR) Negative (NEGATIVE) Influenza Virus Type B (PCR) Negative (NEGATIVE) Urine Color Yellow Urine Clarity Clear Urine pH 6.0 pH (4.8-9.5) Urine Specific [place] 1.020 Urine Protein Negative mg/dL (NEGATIVE) Urine Glucose (UA) Negative mg/dL (NEGATIVE) Urine Ketones Negative mg/dL (NEGATIVE) Urine Blood Negative (NEGATIVE) Urine Nitrite Negative (NEGATIVE) Urine Bilirubin Negative (NEGATIVE) Urine Urobilinogen Negative mg/dL (0.2-1.9) Urine Leukocyte Esterase Negative (NEGATIVE) Urine RBC None /HPF (0-2/HPF) Urine WBC 1 /HPF (0-5/HPF) Urine Squamous Epithelial Cells Many /LPF (</=FEW) Urine Bacteria Negative /HPF (NONE-FEW) Urine Mucus Few /HPF (NONE-FEW) White Blood Count 9.9 k/uL (4.5-11.0) Red Blood Count 5.02 M/uL (4.17-5.56) Hemoglobin 15.1 g/dL (12.0-16.0) Hematocrit 43.9 % (34.0-47.0) Mean Corpuscular Volume 87.4 fL (80.0-96.0) Mean Corpuscular Hemoglobin 30.1 pg (26.0-33.0) Mean Corpuscular Hemoglobin Concent 34.5 g/dL (32.0-36.0) Red Cell Distribution Width 13.5 % (11.5-14.5) Platelet Count 315 K/uL (150-450) Mean Platelet Volume 7.5 fL (7.2-11.1) Neutrophils (%) (Auto) 53.3 % (39.4-72.5) Lymphocytes (%) (Auto) 33.1 % (17.6-49.6) Monocytes (%) (Auto) 10.2 % (4.1-12.4) Eosinophils (%) (Auto) 2.3 % (0.4-6.7) Basophils (%) (Auto) 1.1 % (0.3-1.4) Nucleated RBC Relative Count (auto) 0.0 /100WBC Neutrophils # (Auto) 5.3 K/uL (2.0-7.4) Lymphocytes # (Auto) 3.3 K/uL (1.3-3.6) Monocytes # (Auto) 1.0 K/uL (0.3-1.0) Eosinophils # (Auto) 0.2 K/uL (0.0-0.5) Basophils # (Auto) 0.1 K/uL (0.0-0.1) Nucleated RBC Absolute Count (auto) 0.00 K/uL Glomerular Filtration Rate Calc > 60.0 Calcium Level 8.7 mg/dl (8.4-10.2) Total Bilirubin 0.4 mg/dl (0.2-1.3) Aspartate Amino Transf (AST/SGOT) 29 U/L (0-35) Alanine Aminotransferase (ALT/SGPT) 38 U/L (0-56) Alkaline Phosphatase 74 U/L (0-126) Total Protein 7.2 g/dl (6.3-8.2) Albumin 4.0 g/dl (3.5-5.0) Urinalysis Test 04/28/18 15:53 Urine Color Yellow Urine Clarity Clear Urine pH 6.0 pH (4.8-9.5) Urine Specific [place] 1.020 Urine Protein Negative mg/dL (NEGATIVE) Urine Glucose (UA) Negative mg/dL (NEGATIVE) Urine Ketones Negative mg/dL (NEGATIVE) Urine Blood Negative (NEGATIVE) Urine Nitrite Negative (NEGATIVE) Urine Bilirubin Negative (NEGATIVE) Urine Urobilinogen Negative mg/dL (0.2-1.9) Urine Leukocyte Esterase Negative (NEGATIVE) Urine RBC None /HPF (0-2/HPF) Urine WBC 1 /HPF (0-5/HPF) Urine Squamous Epithelial Cells Many /LPF (</=FEW) Urine Bacteria Negative /HPF (NONE-FEW) Urine Mucus Few /HPF (NONE-FEW) EKG/Imaging Imaging Location: [facility] - [place] Patient: Nelly Palacios : 1995 Visit/Account:[id number] Date of Sevice: 04/28/2018 EXAMINATION: PA and Lateral Chest 04/28/2018 4:02 PM HISTORY: cough x4 days, fevers, chills COMPARISON: 05/19/2014 FINDINGS: Cardiomediastinal contours: Normal Lungs and pleura: Normal Bones/soft tissues: Normal IMPRESSION: No acute cardiopulmonary abnormality. Report Dictated By: Iglesia Mcmanus MD at 04/28/2018 5:10 PM Report E-Signed By: Iglesia Mcmanus MD at 04/28/2018 5:12 PM WSN:[id number] ED Course/Re-evaluation Clinical Indication for ER IV: Hydration, IV Access ED Course The patient was admitted to room. A history and physical were obtained. Differential diagnoses were considered. An IV was started. A CBC, CMP were obtained. A UA was collected. Lab studies unremarkable. Negative influenza. A 1 L normal saline bolus was given. 4 mg IV Zofran were given. DuoNeb 2 were given. Patient had significant relief of her symptoms after the DuoNeb and Zofran. A two-view chest x-ray was negative for any acute cardiopulmonary process. I reviewed the results with the patient. I did tell her this is likely a viral illness that will pass. I did give her 60 mg prednisone in the emergency department and a prescription for 5 days of prednisone. She was also sent home with an albuterol MDI. I did recommend following up with a primary care provider for reevaluation this week, patient expressed understanding and was discharged home. Patient was in agreement with this plan of care. Decision to Disposition Date: Apr 28, 2018 Decision to Disposition Time: 18:44 Depart Departure Latest Vital Signs Vital Signs Date Time Temp Pulse Resp B/P (MAP) Pulse Ox O2 Delivery O2 Flow Rate FiO2 04/28/18 18:52 90 10 90 04/28/18 18:30 113/79 (90) 04/28/18 17:52 Room Air 04/28/18 15:49 98.5 Impression: Primary Impression: Cough Additional Impression: Upper respiratory infection, viral Condition: Improved Disposition: HOME OR SELF-CARE New Scripts Prednisone (PREDNISONE) 20 Mg Tablet 20 MG PO BID, #10 TAB Prov: ZAN AMAYA [employer] AUDIT CLERK-BC 04/28/18 Benzonatate (BENZONATATE) 200 Mg Capsule 200 MG PO TID PRN for COUGH, #15 CAP Prov: ZAN AMAYA [employer] AUDIT CLERK-BC 04/28/18 Patient Instructions: Acute Cough (ED), Upper Respiratory Infection (ED) Additional Instructions: Take the prednisone as prescribed. Use the albuterol inhaler every 4-6 hours as needed for cough. Try the benzonatate for sore throat and irritation. Drink plenty of water. Get plenty of rest. Follow-up with your primary care provider within the next 7-14 days for reevaluation. Return to the emergency department for any other concerns or worsening symptoms. Problem Qualifiers ZAN AMAYA [employer] AUDIT CLERK-BC Apr 28, 2018 15:49
[2018-04-28] MEDS ORDERED: NS(*) 0.9% 1000 ML BAG 1,000 ML IV ONE (16:00)
[2018-04-28] MEDS ORDERED: ONDANSETRON 4 MG/2 ML VIAL IVP ONE (16:00)
[2018-04-28] MEDS ORDERED: ALBUTEROL/IPRATROPIUM 3 ML NEB NEB ONE ×2 (16:05→17:10)
[2018-04-28 16:43] LABS: PLATELET COUNT, AUTOMATED 315 K/uL (150-450)
--- NOTE | 2018-04-28 17:16 | RADIOLOGY IMAGING REPORT ---
[place] [facility] [place] NAME: Nelly Palacios : 1995 MR: [id number] V: [id number] EXAM DATE: ORDERING PHYSICIAN: ZAN AMAYA TECHNOLOGIST: Location: [facility] Patient: Nelly Palacios : 1995 Visit/Account:[id number] Date of Sevice: 04/28/2018 EXAMINATION: PA and Lateral Chest 04/28/2018 4:02 PM HISTORY: cough x4 days, fevers, chills COMPARISON: 05/19/2014 FINDINGS: Cardiomediastinal contours: Normal Lungs and pleura: Normal Bones/soft tissues: Normal IMPRESSION: No acute cardiopulmonary abnormality. Report Dictated By: Iglesia Mcmanus MD at 04/28/2018 5:10 PM Report E-Signed By: Iglesia Mcmanus MD at 04/28/2018 5:12 PM WSN:[id number]
[2018-04-28 18:30] VITALS: BP 113/79
[2018-04-28] MEDS ORDERED: predniSONE 20 MG TAB PO ONE (18:40)
[2018-04-28] MEDS ORDERED: ALBUTEROL 8 GM INHALER INH ONE (18:40)
[2018-04-28] MEDS ORDERED: BENZ200C15 PO (18:42)
[2018-04-28] MEDS ORDERED: PRED20TA6 PO (18:42)
== END 2018-04-28 19:07 | disposition home or self-care (01) ==
LOC: ER 15:53
DX: J06.9 Acute upper respiratory infection, unspecified (principal); R05 Cough; F17.210 Nicotine dependence, cigarettes, uncomplicated
CPT/HCPCS: 71046; 81001; 85025; 87502; 94640; 96374; 99284; J2405; J3535; J7030; J7512; J7620; 82040; 82247; 82310; 82374; 82435; 82565; 82947; 84075; 84132; 84155; 84295; 84450; 84460; 84520

== ENCOUNTER → 2018-06-28 | Outpatient (CLI) | payer SELFPAY ==
[~2018-06-28] MED LIST changes: +BENZ200C15 PO; +OSE75 PO; +PREN-127 PO
[2018-06-28 10:14] LABS: PLATELET COUNT, AUTOMATED 294 K/uL (150-450)
== END ==
LOC: LAB 08:10
PROVIDERS: ATTEND Student in an Organized Health Care Education/Training Program
DX: Z34.81 Encounter for supervision of other normal pregnancy, first trimester (principal); R79.89 Other specified abnormal findings of blood chemistry
CPT/HCPCS: 36415; 81001; 85025; 86592; 86703; 86762; 86850; 86900; 86901; 87088; 87340

== ENCOUNTER 2018-06-29 16:20 | Emergency (ER) | payer SELFPAY ==
[~2018-06-29 16:20] MED LIST changes: -OSE75 PO
--- NOTE | 2018-06-29 16:43 | ER Report ---
History and Physical Time Seen By MD: 16:24 Hx. of Stated Complaint: patient reports fever, body aches, cough and chills starting this morning HPI/ROS CHIEF COMPLAINT: Cough, fevers, bodyaches HISTORY OF PRESENT ILLNESS: 22-year-old female patient presents to emergency room with complaint of cough, fevers and body aches. Patient states this been going on since about 5:30 this morning. She states she was awoken with bodyaches. She states she's felt hot and sweaty throughout the day. She's also noticed that she is felt chilled. She states that she's not had any nausea, vomiting or diarrhea. She states she's been able to eat normally. She states that she just feels horrible and one to be evaluated for this. Patient has not taken any medication for this. Allergies: Coded Allergies: peanut (Verified Allergy, Severe, ANAPHYLAXIS, 01/29/18) Home Meds Active Scripts Oseltamivir Phosphate (TAMIFLU) 75 Mg Cap, 75 MG PO BID, #10 CAP Prov:LORELEI MONTEJO [facility] 06/29/18 Reported Medications Acetaminophen (TYLENOL) 325 Mg Tablet, 325 MG PO, TAB 06/28/18 Vits W-Ca,Fe,Fa(<1MG) ( VITAMINS) 1 Each Tablet, 1 EACH PO DAILY, TAB 06/28/18 Discontinued Scripts Prednisone (PREDNISONE) 20 Mg Tablet, 20 MG PO BID, #10 TAB Prov:ZAN AMAYA [facility] 04/28/18 Benzonatate (BENZONATATE) 200 Mg Capsule, 200 MG PO TID PRN for COUGH, #15 CAP Prov:ZAN AMAYA [facility] 04/28/18 Oxycodone Hcl/Acetaminophen (PERCOCET 5-325 MG TABLET) 1 Each Tablet, 1 EACH PO Q4-6H PRN for PAIN, #8 TAB Prov:LORELEI MONTEJO [facility] 03/14/18 Clindamycin Hcl (CLINDAMYCIN HCL) 300 Mg Capsule, 300 MG PO Q6H, #50 CAPSULE Prov:LORELEI MONTEJO [facility] 03/14/18 Sulfamethoxazole/Trimet 800-160 Mg Tab (BACTRIM DS TABLET) 1 Each Tablet, 1 TAB PO Q12H, #26 TAB Prov:LORELEI MONTEJO [facility] 03/14/18 Hydrocodone Bit/Acetaminophen (NORCO 5-325 TABLET) 1 Each Tablet, 1 EACH PO Q4- 6H PRN for PAIN, #6 TAB 0 Refills Prov:ZAN AMAYA [facility]- 03/13/18 Cephalexin 500 Mg Tab (KEFLEX 500 MG TAB) 500 Mg Tablet, 500 MG PO Q6H, #28 TAB 0 Refills Prov:ZAN AMAYA [facility]- 03/13/18 Past Medical/Surgical History Patient has a past medical history of miscarriage, labial cellulitis, depression, anxiety. Patient has a surgical history of was some teeth removed. Reviewed Nurses Notes: Yes Hx Smoking: Yes Smoking Status: Current: Every Day Smoker Exposure to Second Hand Smoke?: Yes Hx Substance Use Disorder: No Hx Alcohol Use: No Constitutional Vital Sign - Last 24 Hours 06/29/18 06/29/18 16:25 17:25 Temp 98.6 Pulse 89 B/P (MAP) 148/91 (110) O2 Delivery Room Air Physical Exam General Appearance: The patient is alert, has no immediate need for airway protection and no current signs of toxicity. Respiratory: Chest is non tender, lungs are clear to auscultation. Cardiac: regular rate and rhythm Gastrointestinal: Abdomen is soft and non tender, no masses, bowel sounds normal. Musculoskeletal: Neck: Neck is supple and non tender. Extremities have full range of motion and are non tender. Skin: No rashes or lesions. DIFFERENTIAL DIAGNOSIS: After history and physical exam differential diagnosis was considered for upper respiratory infection, pneumonia, viral syndrome. Medical Decision Making Data Points Laboratory Hematology Test 06/29/18 16:26 Influenza Virus Type A (PCR) Positive (NEGATIVE) Influenza Virus Type B (PCR) Negative (NEGATIVE) Chemistry Test 06/29/18 16:26 Influenza Virus Type A (PCR) Positive (NEGATIVE) Influenza Virus Type B (PCR) Negative (NEGATIVE) ED Course/Re-evaluation ED Course Patient was admitted to exam room, history and physical were obtained. Differential diagnoses were considered. On examination lungs are clear, heart is regular but tachycardia, abdomen is soft nontender. An influenza screen was done which was positive. I discussed the findings with the patient and her significant other. We will go ahead and discharge him home at this time. She is to increase her fluid intake, get plenty of rest. She is to follow-up with her OB on Sunday as previous schedule. Patient and her significant other verbalized understanding and agreement. Patient was given a prescription for Tamiflu. Decision to Disposition Date: Jun 29, 2018 Decision to Disposition Time: 17:18 Depart Departure Latest Vital Signs Vital Signs Date Time Temp Pulse Resp B/P (MAP) Pulse Ox O2 Delivery O2 Flow Rate FiO2 06/29/18 17:25 89 148/91 (110) 06/29/18 16:25 98.6 Room Air Impression: Primary Impression: Influenza A Condition: Improved Disposition: HOME OR SELF-CARE New Scripts Oseltamivir Phosphate (TAMIFLU) 75 Mg Cap 75 MG PO BID, #10 CAP Prov: LORELEI MONTEJO 06/29/18 Patient Instructions: Influenza (ED) Additional Instructions: Increase fluid intake. Get plenty of rest. Take Tylenol or Ibuprofen as needed for fevers. Stay home until you are fever free for 24 hours. Return to the ER if condition worsens. Follow up with your primary care provider next week as scheduled. LORELEI MONTEJO Jun 29, 2018 16:43
[2018-06-29] MEDS ORDERED: OSE75 PO (17:17)
[2018-06-29 17:25] VITALS: BP 148/91
== END 2018-06-29 17:25 | disposition home or self-care (01) ==
LOC: ER 16:23
DX: J09.X2 Influenza due to identified novel influenza A virus with other respiratory manifestations (principal)
CPT/HCPCS: 87502; 99282

== ENCOUNTER → 2018-07-03 | Outpatient (CLI) | payer SELFPAY ==
[~2018-07-03] MED LIST changes: +OSE75 PO
== END ==
LOC: LAB 10:25
PROVIDERS: ATTEND Student in an Organized Health Care Education/Training Program
DX: Z34.91 Encounter for supervision of normal pregnancy, unspecified, first trimester (principal)
CPT/HCPCS: 87491; 87591

== ENCOUNTER → 2018-07-30 | Outpatient (CLI) | payer SELFPAY | LOC: LAB 15:23 | PROVIDERS: ATTEND Student in an Organized Health Care Education/Training Program | DX: Z83.49 Family history of other endocrine, nutritional and metabolic diseases (principal) | CPT/HCPCS: 36415; 84443 ==

== ENCOUNTER → 2018-09-30 | Outpatient (CLI) | payer SELFPAY ==
[~2018-09-30] MED LIST changes: +ONDA4TAB97 PO
--- NOTE | 2018-09-30 13:46 | RADIOLOGY IMAGING REPORT ---
FACILITY: [facility] PATIENT NAME: Nelly Palacios : 1995 MR: [id number] V: [id number] EXAM DATE: ORDERING PHYSICIAN: KATIE PASTRANA TECHNOLOGIST: Location: [facility] [place] Patient: Nelly Palacios : 1995 Visit/Account:[id number] Date of Sevice: 09/30/2018 EXAMINATION: Ultrasound transabdominal OB > 14 weeks with anatomic evaluation HISTORY: 20 week anatomical survey COMPARISON: None. TECHNIQUE: Transabdominal imaging was performed for assessment of the fetus and maternal pelvic structures. T ransvaginal imaging was not performed. FINDINGS: Placenta: Anterior without previa. Uterus: Gravid, otherwise normal Cervix: Long and closed. Maternal Ovaries: Not visualized. Maternal and other adnexa findings: Not visualized Intrauterine gestations: One. presentation: Variable heart rate: Normal and regular at 143 bpm Amniotic fluid index: 13.88 cm Largest amniotic fluid pocket: 4.54 cm Gestational Parameters: BPD: 4.7 cm 20 weeks/ two days, 91% HC: 17.76 cm 20 weeks/ two days, 91% AC: 14.08 cm 19 weeks/ four days, 61% FL: 3.18 cm 20 weeks/ zero days, 75% Average ultrasound age (AUA): 20 weeks/one days, DIOR 02/16/2019 Estimated gestational age by LMP: 19 weeks/zero days, DIOR 02/24/2019 Estimated weight (EFW): 310 grams +/- 45 grams EFW for DIOR: 86 percentile Anatomic Survey: Intracranial structures, 4-chamber heart, stomach, kidneys, urinary bladder, spine, 3-vessel cord and cord insertion are unremarkable. Two upper and two lower extremities visualized. Cardiac ventricula r outflow tracts, palate and lips are unremarkable in appearance.. The anatomic survey however was limited due to patient's body habitus and lie by technologist notation IMPRESSION: Single viable fetus in variable presentation with an estimated gestational age by measur ements of 20 weeks and one day. The estimated gestational age by LMP is 19 weeks and zero days. Estimated weight is 310 g which is equivalent to the 86th percentile. Anatomic survey was limited due to maternal body habitus and lie by technologist notation Report Dictated By: Nicole Taylor MD at 09/30/2018 1:37 PM Report E-Signed By: Nicole Taylor MD at 09/30/2018 1:41 PM MAGUIN:[email or web address]
== END ==
LOC: LAB 10:52
PROVIDERS: ATTEND Student in an Organized Health Care Education/Training Program
DX: Z34.02 Encounter for supervision of normal first pregnancy, second trimester (principal); Z83.49 Family history of other endocrine, nutritional and metabolic diseases; Z3A.14 14 weeks gestation of pregnancy
CPT/HCPCS: 36415; 84443; 86376

== ENCOUNTER → 2018-11-25 | Outpatient (CLI) | payer SELFPAY ==
[~2018-11-25] MED LIST changes: +BLOO-1511 MC; +BLOO-960 MC; +DIPH0.5S2 IM; +LANC-165 MC
[2018-11-25 11:33] LABS: PLATELET COUNT, AUTOMATED 321 K/uL (150-450)
== END ==
LOC: LAB 07:52
PROVIDERS: ATTEND Student in an Organized Health Care Education/Training Program
DX: Z34.92 Encounter for supervision of normal pregnancy, unspecified, second trimester (principal)
CPT/HCPCS: 36415; 82950; 85025

== ENCOUNTER → 2018-11-26 | Outpatient (CLI) | payer SELFPAY | LOC: LAB 08:39 | PROVIDERS: ATTEND Student in an Organized Health Care Education/Training Program | DX: O99.810 Abnormal glucose complicating pregnancy (principal) | CPT/HCPCS: 36415; 82951; 82952 ==

== ENCOUNTER 2018-11-28 11:13 | Outpatient (RCR) | payer SELFPAY ==
[~2018-11-28] VITALS: Ht 172.7 cm; Wt 139.7 kg
--- NOTE | 2018-11-28 16:55 | Medical Nutrition Therapy ---
Nutrition Anthropometrics Height (Inches): 68 (stated) Weight (Pounds): 308 (stated, 27 wk PG) Kishore Nutrition Score: Kishore Nutrition Risk Score: Dietary Referral Nutrition Risk Factors: Nutrition Risk Comment: Nutrition/Food History Breakfast: skips- pt works 4:0Pm- 12:00 AM Lunch: eats at 5:00PM equestrian trainer salad Dinner: eats at 10:30 equestrian trainer salad Snacks: throughout night: chips, watermelon, dried cherries Nutritional Education Nutrition Education Topic: Diabetic Nutrition (gestational) Learning Readiness: Eager, Interested Teaching Methods: Discussion, Handout, Demonstration Response to Teaching: Verbalize understanding, Reinforcement needed Teaching Recipient: Patient, Family Nutrition Counseling: Pt and mother attended session. Reviewed what is gestational DM, risk factors, risk for T2DM. Demonstrated glucometer, desired BG ranges and priovided IMG's BG monitoring form. Reviewed nutrition for GDM. Pt works swing shift. Pt wakes up ~ 11:30 but doesn't eat until 5:00. Eats 2 meals at work and then snacks troughout the night. Discussed glycemic affect of CHO. Enouraged low glycemic index foods. Discussed high GI of watermelon and dried cherries. Enocuraged pt to measure amount she is eating and check BG to make sure it is within acceptable range after eating. Enouraged pt to eat a protein along with fruit with her snacks. Encouraged pt to eat something when she first gets up rather than waiting until 5:00. Provided meal plan of 30-45gm CHO breakfast (at 12:00), lunch(at 5:00PM) and dinner (at 10:30) with 2 snacks of 30gm CHO and protein. Pt will f/u 12/05 @ 10:00. Nutrition Monitoring & Eval RD Patient Assessment Time: [address] Assessment Type: RD Education Nutritional Comment: Provided 60 minutes diabetes education focusing on gestational DN, glucometer testing and nutrition Copies To Copies to: KATIE PASTRANA DO ; BERNARDINO MCDANIEL Nov 28, 2018 16:55
--- NOTE | 2018-12-05 13:42 | Medical Nutrition Therapy ---
Nutritional Education Nutrition Education Topic: Diabetic Nutrition Learning Readiness: Interested Teaching Methods: Discussion, Handout, Demonstration Teaching Recipient: Patient, Significant Other Nutrition Counseling: Pt returned for gest DM education. BG's running slightly high in morning. Recommend pt eat hs snack with protein. RBG after meals are < 120 however pt has been significaly reducing CHO intake to 5-20gm most meals. When pt did eat a supper meal of ~ 45gm, BG was higher in AM. Discussed importance of adding protein with CHO and eating adequate CHO so pt doesn't get "diabetic burnout" with meals. Enocuraged pt to discuss with physician and enouraged pt to be open with diabetic meds if needed. Pt was able to accuately identify CHO foods. Reviewed portion sizes. Pt has been using 2 different glucometers. Recommend pt stick with 1 glucometer rather that changing back and forth as they will have different readings. Pt could verify a high or low reading with the 2nd glucometer but needs to inform doctor. Pt is to call if further questions or concerns. Nutrition Monitoring & Eval RD Patient Assessment Time: [address] Assessment Type: RD Education Nutritional Comment: Provided 30 minutes diabetes education focusing on BG readings and nutrition Copies To Copies to: KATIE PASTRANA DO ; BERNARDINO MCDANIEL Dec 05, 2018 13:42
== END 2018-12-11 14:01 | disposition home or self-care (01) ==
LOC: DIET 11:13
PROVIDERS: ATTEND Student in an Organized Health Care Education/Training Program
DX: Z71.3 Dietary counseling and surveillance (principal); O24.419 Gestational diabetes mellitus in pregnancy, unspecified control
CPT/HCPCS: G0108 ×4